=== PATIENT | female | born 1990 | race American Indian/Alaskan Native ===

== ENCOUNTER 2017-02-14 12:11 | Emergency (ER) | payer MEDICAID, OTHER ==
[2017-02-14 12:22] VITALS: BP 105/68
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
--- NOTE | 2017-02-14 12:59 | CR ---
CLINICAL HISTORY: Three views left humerus 26-year-old female complaining of left arm pain. INTERPRETATION: Negative exam. Homogeneous normal bone density without sign of pathologic skeletal lesion or long bone fracture, le ft humerus. No foreign bodies or inflammatory periostitis. Left shoulder and elbow unremarkable. Left lung clear.
[2017-02-14] MEDS ORDERED: Ketorolac 30 MG/ML SDV IM ONE (13:26)
[2017-02-14] MEDS ORDERED: Cyclobenzaprine 10 MG Tab PO ONE (13:26)
== END 2017-02-14 13:55 | disposition home or self-care (01) ==
LOC: DL.ED 12:11
DX: S46.912A Strain of unspecified muscle, fascia and tendon at shoulder and upper arm level, left arm, initial encounter (principal); F41.9 Anxiety disorder, unspecified; F17.210 Nicotine dependence, cigarettes, uncomplicated; Z87.440 Personal history of urinary (tract) infections; Z98.51 Tubal ligation status; Y93.72 Activity, wrestling; Y92.009 Unspecified place in unspecified non-institutional (private) residence as the place of occurrence of the external cause
CPT/HCPCS: 73060; 96372; 99283; A9270; J1885

== ENCOUNTER 2017-04-20 15:20 | Emergency (ER) | payer MEDICAID, OTHER ==
[2017-04-20 15:44] VITALS: BP 109/58
[2017-04-20 16:43] LABS: CHLORIDE,CL 104 mmol/L (101-111); SODIUM,NA 141 mmol/L (135-145)
[2017-04-20] MEDS ORDERED: cefTRIAXone 250 MG, Lidocaine 1% 0.9 ML IM ONE ×2 (18:05)
[2017-04-20] MEDS ORDERED: Azithromycin 250 MG Tab PO ONE (18:06)
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
== END 2017-04-20 19:20 | disposition home or self-care (01) ==
LOC: DL.ED 15:20
DX: T76.21XA Adult sexual abuse, suspected, initial encounter (principal); F19.10 Other psychoactive substance abuse, uncomplicated; F12.90 Cannabis use, unspecified, uncomplicated; Z87.09 Personal history of other diseases of the respiratory system; F17.210 Nicotine dependence, cigarettes, uncomplicated
CPT/HCPCS: 36415; 80053; 80305; 81001; 81025; 85025; 86803; 87340; 87389; 87491; 87591; 96372; 99285; A9270; G0480; J0696; 86703

== ENCOUNTER 2017-08-01 19:16 | Emergency (ER) | payer MEDICAID ==
[2017-08-01 19:20] VITALS: BP 117/81
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
[2017-08-01] MEDS ORDERED: Ibuprofen 600 MG Tab PO ONE (19:48)
== END 2017-08-01 20:00 | disposition home or self-care (01) ==
LOC: DL.ED 19:16
DX: S00.03XA Contusion of scalp, initial encounter (principal); W22.03XA Walked into furniture, initial encounter; F17.210 Nicotine dependence, cigarettes, uncomplicated
CPT/HCPCS: 99284; A9270

== ENCOUNTER 2017-08-06 17:45 | Emergency (ER) | payer MEDICAID ==
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
[2017-08-06] MEDS ORDERED: Sodium Chloride 0.9% 10 ML Syringe FLUSH PRN (18:40)
[2017-08-06] MEDS ORDERED: Sodium Chloride 0.9% 1,000 ML IV ONE (18:43)
[2017-08-06 18:56] LABS: CHLORIDE,CL 103 mmol/L (101-111); SODIUM,NA 139 mmol/L (135-145)
[2017-08-06] MEDS ORDERED: Acetaminophen 325 MG Tab PO ONE (19:33)
[2017-08-06] MEDS ORDERED: cefTRIAXone 1 GM in Sodium Chloride 0.9% 50 ML IV ONE (20:27)
[2017-08-06 21:18] VITALS: BP 99/52
== END 2017-08-06 21:12 | disposition home or self-care (01) ==
LOC: DL.ED 17:45
DX: N39.0 Urinary tract infection, site not specified (principal); D50.8 Other iron deficiency anemias; F19.10 Other psychoactive substance abuse, uncomplicated; F17.210 Nicotine dependence, cigarettes, uncomplicated
CPT/HCPCS: 36415; 74176; 80053; 80305; 81001; 81025; 85025; 85610; 96361; 96365; 99284; A9270; J0696; J7030; J7050

== ENCOUNTER 2017-08-12 13:28 | Observation (INO) | payer MEDICAID ==
[2017-08-12] MEDS ORDERED: Sodium Chloride 0.9% 10 ML Syringe FLUSH PRN (14:03)
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
[2017-08-12 14:40] LABS: CHLORIDE,CL 104 mmol/L (101-111); SODIUM,NA 140 mmol/L (135-145)
[2017-08-12] MEDS ORDERED: Pantoprazole 40 MG Vial IVPUSH ONE (15:26)
--- NOTE | 2017-08-12 16:33 | US ---
Clinical history: 26-year-old female in the emergency department with abdominal pain. Interpretation: Gallbladder surgically absent. Head and part of the body of the pancreas obscured by gas. (Tail pancreas normal). Homogeneous normal sonodensity of the liver and no sign of intra or extra hepatic biliary duct dilata tion (common hepatic duct 4 mm diameter). No ascites. CONCLUSION: Cholecystectomy. Liver unremarkable. Most of pancreas obscured by gas.
[2017-08-12] MEDS ORDERED: Ondansetron 4 MG/2 ML SDV IVPUSH PRN (17:35)
[2017-08-12] MEDS ORDERED: Sodium Chloride 0.9% 1,000 ML IV SCH (17:45)
[2017-08-12] MEDS ORDERED: Zolpidem 5 MG Tab PO PRN (19:39)
[2017-08-12] MEDS: Acetaminophen 325 MG Tab PO PRN (20:30)
[2017-08-12] MEDS: Ciprofloxacin 500 MG Tab PO SCH (20:37)
--- NOTE | 2017-08-12 20:45 | HP ---
CHIEF COMPLAINT: Dizziness and abdominal pain. HISTORY OF PRESENT ILLNESS: Ms. Loan Bianchi is a 26-year-old female with a history of illicit drug use. The patient presented to the emergency room with complaint of weakness. She was referred from [facility] because of low hemoglobin. She has been feeling weak for the past few days, described as generalized. Also complains of lightheadedness which happens when she stands up and better when she lays down. Has worsened over time. Denies having chest pain, but does have abdominal discomfort located in the periumbilical area. The abdominal pain has been going on for 2 days and is constant. She was recently evaluated in the emergency room because of severe abdominal pain with a CT scan. There were no significant abnormalities noted at that time. She denies nausea or vomiting. No headache. No dysuria and no frequency on micturition. The patient last used methamphetamine 2 days ago. She has used it intermittently. PAST MEDICAL HISTORY: No chronic medical illness. SOCIAL HISTORY: Illicit drug use. Uses methamphetamine. FAMILY HISTORY: Reviewed and considered noncontributory. PAST MEDICATIONS: None of note. REVIEW OF SYSTEMS: Ten point review of system performed including constitutional, cardiac, respiratory, gastrointestinal, and genitourinary system. No other pertinent findings except as noted above. OBJECTIVE: General: The patient is alert, oriented to place, time, and person. Head: Atraumatic and normocephalic. Ear, Nose, and Throat: Unremarkable. Chest: Good air entry bilaterally. CVS: Regular rate and rhythm. Abdomen : Vague discomfort on palpation. No focal tenderness. No rebound tenderness. Extremities: No pedal edema. No finger clubbing. Skin: No rash. Neuro: Symmetric strength in all extremities. Endocrine: No thyromegaly. LABORATORY DATA: Hemoglobin is down to 7.1. ASSESSMENT: 1. Symptomatic anemia. The patient complains of feeling dizzy and lightheaded. This is as a result of a low hemoglobin of 7.1. She indicated that she does have multiple irregular menstrual periods. She usually gets about 2 menstrual periods in a month and it is usually heavy. 2. Blood loss anemia. Due to menstrual loss. 3. Abdominal pain. The etiology of this is unclear. It maybe due to dyspepsia. Also, we need to rule out peptic ulcer disease. Denies using nonsteroidal anti-inflammatory drugs. 4. Illicit drug use. The patient uses methamphetamine. Last use was yesterday. PLAN: 1. Admit the patient to medical floor. 2. Type crossmatch and transfuse 2 units of packed red blood cell. 3. Obtain ultrasound of the right upper quadrant to rule out acute cholecystitis. 4. Intravenous Protonix. 5. Obtain repeat CBC posttransfusion. Chart reviewed. Discussed with the emergency room physician. [facility] /[id number]
[2017-08-13] MEDS: Ciprofloxacin 500 MG Tab PO SCH (08:36)
[2017-08-13] MEDS: Acetaminophen 325 MG Tab PO PRN (08:44)
[2017-08-13] MEDS ORDERED: Pantoprazole 40 MG Vial IVPUSH SCH (09:00)
[2017-08-13 10:30] VITALS: BP 96/58
--- NOTE | 2017-08-14 03:33 | DISCH ---
FINAL DIAGNOSES: 1. Symptomatic anemia. 2. Blood loss anemia likely due to menstrual loss. 3. Abdominal pain. 4. Illicit drug use. SUMMARY OF HOSPITAL COURSE: Ms. Loan Bianchi is a 26-year-old female, who uses illicit drugs. She uses methamphetamine and marijuana. She presented to the emergency room complaining of abdominal discomfort and weakness. She was also complaining of feeling dizzy and lightheaded. Her symptoms get worse when she stands and better when she lays down. She was feeling weak. Her hemoglobin was noted to be 7.1. No active bleeding noted. The patient was admitted to the hospital and transfused with 2 units of packed red blood cells. Posttransfusion, her hemoglobin is 9.5. Her symptoms have improved. The patient is started on oral iron sulfate. She has been advised to follow up with primary care practitioner and also with gynecology. PHYSICAL EXAMINATION: General: At discharge, the patient is alert, oriented to place, time, and person. Head: Atraumatic and normocephalic. Ear, Nose, and Throat: Unremarkable. Neck: Supple. Chest: Clear to auscultation. CVS: Regular rate and rhythm. Abdomen: Soft, nontender. Extremities: No pedal edema. No finger clubbing. Skin: No rash. [facility] /[id number]
== END 2017-08-13 11:07 | disposition home or self-care (01) ==
LOC: DL.ED 13:28 → DL.MS 17:35 → UNDOADMOB 17:37
PROVIDERS: ADMIT Hospitalist; ATTEND Hospitalist
DX: D50.0 Iron deficiency anemia secondary to blood loss (chronic) (principal); R10.9 Unspecified abdominal pain; F12.90 Cannabis use, unspecified, uncomplicated; F15.90 Other stimulant use, unspecified, uncomplicated
CPT/HCPCS: 36415; 36430; 76700; 80053; 80305; 81001; 81025; 82272; 85025; 86850; 86900; 86901; 86920; 86922; 96361; 96374; 96376; 99285; A9270; C9113; G0378; J7030; P9016

== ENCOUNTER 2017-09-16 22:38 | Emergency (ER) | payer MEDICAID ==
[2017-09-16 22:46] VITALS: BP 123/71
[2017-09-16 23:21] LABS: CHLORIDE,CL 102 mmol/L (101-111); SODIUM,NA 138 mmol/L (135-145)
[2017-09-16] MEDS ORDERED: Ibuprofen 800 MG Tab PO ONE (23:43)
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
== END 2017-09-17 00:07 | disposition home or self-care (01) ==
LOC: DL.ED 22:38
DX: N92.0 Excessive and frequent menstruation with regular cycle (principal); D64.9 Anemia, unspecified; F17.210 Nicotine dependence, cigarettes, uncomplicated
CPT/HCPCS: 36415; 80053; 80305; 81001; 81025; 85025; 85610; 99284; A9270

== ENCOUNTER 2017-11-16 03:12 | Emergency (ER) | payer MEDICAID ==
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
[2017-11-16] MEDS ORDERED: Ketorolac 30 MG/ML SDV IVPUSH ONE (03:32)
[2017-11-16 03:34] VITALS: BP 108/72
[2017-11-16 03:54] LABS: ANION GAP 10.8; CHLORIDE,CL 106 mmol/L (101-111); SODIUM,NA 138 mmol/L (135-145)
== END 2017-11-16 05:25 | disposition home or self-care (01) ==
LOC: DL.ED 03:12
DX: N20.0 Calculus of kidney (principal); F32.9 Major depressive disorder, single episode, unspecified; F17.210 Nicotine dependence, cigarettes, uncomplicated; Z79.899 Other long term (current) drug therapy
CPT/HCPCS: 36415; 74176; 80053; 80305; 81001; 81025; 85025; 96374; 99284; J1885

== ENCOUNTER 2017-12-18 08:26 | Emergency (ER) | payer MEDICAID ==
[2017-12-18 08:33] VITALS: BP 96/60
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
[2017-12-18] MEDS: Sodium Chloride 0.9% 1,000 ML IV ONE (09:12)
[2017-12-18] MEDS: HYDROmorphone 0.5 MG/0.5 ML Syringe IVPUSH ONE (09:12)
[2017-12-18 09:14] LABS: CHLORIDE,CL 100 mmol/L (101-111); SODIUM,NA 134 mmol/L (135-145)
[2017-12-18] MEDS: Iopamidol 612 MG/ML 75 ML Bottle IVPUSH ONE (09:45)
[2017-12-18] MEDS: cefTRIAXone 250 MG, Lidocaine 1% 0.9 ML IM ONE ×2 (10:52)
== END 2017-12-18 11:07 | disposition home or self-care (01) ==
LOC: DL.ED 08:26
DX: A74.89 Other chlamydial diseases (principal); F19.10 Other psychoactive substance abuse, uncomplicated; Z79.899 Other long term (current) drug therapy; F17.210 Nicotine dependence, cigarettes, uncomplicated
CPT/HCPCS: 36415; 74177; 80053; 80305; 81001; 81025; 82150; 83690; 85025; 85651; 87210; 87491; 87591; 96361; 96372; 96374; 99285; J0696; J1170; J7030; Q9967

== ENCOUNTER 2020-07-16 20:34 | Emergency (ER) | payer MEDICAID | END 2020-07-16 21:05 | disposition left against medical advice (07) | LOC: DL.ED 20:34 | DX: Z53.21 Procedure and treatment not carried out due to patient leaving prior to being seen by health care provider (principal) ==

== ENCOUNTER 2020-07-17 09:15 | Emergency (ER) | payer MEDICAID ==
[2020-07-17 09:24] VITALS: BP 115/67; PULSE 93
--- NOTE | 2020-07-17 09:45 | CR ---
PROCEDURE INFORMATION: Exam: XR Left Elbow Exam date and time: 07/17/2020 9:19 AM Age: 29 years old Clinical indication: Swelling; Elbow; Left; Additional info: Fall TECHNIQUE: Imaging protocol: XR Left elbow. Views: 1 or 2 views. COMPARISON: No relevant prior studies available. FINDINGS: Bones/joints: Normal mineralization and alignment. No fracture, degenerative spur, osseous erosion, joint effusion, joint body or other deformity. Soft tissues: Prominent, isodense bulbous posterior left elbow soft tissue swelling/enlargement. IMPRESSION: Posterior left elbow soft tissue injury. Normal bones.
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
== END 2020-07-17 09:54 | disposition home or self-care (01) ==
LOC: DL.ED 09:15
DX: S59.902A Unspecified injury of left elbow, initial encounter (principal); F17.210 Nicotine dependence, cigarettes, uncomplicated; W10.9XXA Fall (on) (from) unspecified stairs and steps, initial encounter
CPT/HCPCS: 73070-LT; 99283; 99283-25